=== PATIENT | male | born 1995 | race Caucasian/White ===

== ENCOUNTER 2017-03-13 19:17 | Emergency (ER) | payer BC ==
[~2017-03-13] VITALS: Ht 175.3 cm; Wt 65.9 kg
[2017-03-13 19:30] VITALS: TEMP 98.3
[2017-03-13 20:10] LABS: HEMATOCRIT 37.2 % (42.0-52.0); MEAN CELL VOLUME 84 fl (80.0-100.0); MEAN CORPUSCULAR HEMOGLOBIN 29 pg (27.0-31.0); MEAN CORPUSCULAR HGB CONC 35 g/dl (33.0-37.0); MEAN PLATELET VOLUME 10.7 fl (7.4-10.4); PLATELET COUNT 214 K/mm3 (130-400); RED BLOOD COUNT 4.43 M/mm3 (4.20-5.60); REDCELL DISTRIBUTION WIDTH-CV 11.8 % (11.5-14.5); WHITE BLOOD COUNT 16.6 K/mm3 (4.8-10.8)
[2017-03-13 20:13] LABS: ADD PATHOLOGY DIFF REVIEW NO
[2017-03-13 20:20] LABS: ADJUSTED CALCIUM 9.3 mg/dL (8.4-10.2); CALCIUM 10.1 mg/dL (8.4-10.2); CREATININE, serum 1.05 mg/dL (0.66-1.25); POTASSIUM 3.8 mmol/L (3.4-5.0); TOTAL PROTEIN 8.3 gm/dL (6.4-8.2)
[2017-03-13 20:26] LABS: BAND 5 % (0-10); NEUTROPHILS 88 % (42.0-75.2); PLATELET ESTIMATE NORMAL (NORMAL); TOTAL CELLS COUNTED 100
[2017-03-13] MEDS ORDERED: ZOFRAN 4MG T4 MG/TAB PO (20:41)
[2017-03-13] MEDS ORDERED: NORCO 325 MG-51 TAB PO (20:41)
[2017-03-13 21:26] LABS: PH 6 (5-8); SQUAMOUS EPITHELIAL 0-2 /hpf; URINE APPEARANCE Cloudy; URINE BACTERIA None Seen /hpf; URINE BILIRUBIN Negative (NEGATIVE); URINE BLOOD 3+ (NEGATIVE); URINE COLOR Yellow; URINE GLUCOSE 1+ (NEGATIVE); URINE KETONE Trace (NEGATIVE); URINE RBC >50 /hpf; URINE UROBILINOGEN Negative (NEGATIVE)
[2017-03-13 22:04] VITALS: BP 121/73; PULSE 89
== END 2017-03-13 22:03 | disposition home or self-care (01) ==
LOC: COL.ER 19:17
PROVIDERS: Emergency Medicine
DX: N20.2 Calculus of kidney with calculus of ureter (principal); R11.2 Nausea with vomiting, unspecified; R63.0 Anorexia
CPT/HCPCS: J1170; J1885; J2550; J7030

== ENCOUNTER 2017-03-17 16:03 | Day surgery (SDC) | payer BC ==
[~2017-03-17] VITALS: Ht 175.3 cm; Wt 67.7 kg
[~2017-03-17 16:03] MED LIST: NORCO 325 MG-51 TAB PO; ZOFRAN 4MG T4 MG/TAB PO
[2017-03-17 16:13] VITALS: BP 146/78; PULSE 96; TEMP 98.6
[2017-03-17 22:18] VITALS: BP 132/71; PULSE 73; TEMP 98.4
[2017-03-18 00:26] VITALS: PULSE 109
[2017-03-18 06:05] VITALS: BP 121/67; PULSE 100; TEMP 98.8
[2017-03-18 10:34] VITALS: BP 136/73; PULSE 78; TEMP 98.4
[2017-03-18 14:09] VITALS: BP 121/71; PULSE 88; TEMP 98.3
[2017-03-18 18:20] VITALS: BP 122/58; PULSE 79; TEMP 98.6
[2017-03-18 23:39] VITALS: BP 142/79; PULSE 74; TEMP 97.8
[2017-03-19 05:08] VITALS: BP 124/80; PULSE 78; TEMP 99.1
[2017-03-19 10:07] VITALS: BP 121/61; PULSE 66; TEMP 97.1
== END 2017-03-19 13:49 | disposition home or self-care (01) ==
LOC: SDCO 16:03 → SURG 16:04 → SDCO 03-19 13:49
DX: N20.1 Calculus of ureter (principal)
CPT/HCPCS: OP; G0378; G0379; J1885; J2270; J2405; J7030